=== PATIENT | male | born 1965 | race Caucasian/White ===

== ENCOUNTER 2023-10-05 19:43 | Emergency (ER) | payer BC, SELFPAY ==
[2023-10-05 19:58] VITALS: BP 143/98; PULSE 86; RESP 18; O2SAT 97; BMI 29.8
[2023-10-05] MEDS: LIDOCAINE 2%-EPI 1:200,000 20 ML 5 ML INFILTRATI (20:41)
[2023-10-05] MEDS: TETANUS/DIPHTH/PERTUSSIS 0.5 ML SYRINGE IM (20:45)
--- NOTE | 2023-10-05 20:54 | ED.GENADULT ---
HPI - General Adult General Date Seen: 10/05/23 Chief complaint: Laceration/Wound Stated complaint: L arm lac-metal wheel. bleeding. Time Seen by Provider: 10/05/23 19:47 Source: patient Mode of arrival: ambulatory Limitations: no limitations History of Present Illness HPI narrative: Patient is a 58-year-old male who was using some sort of grinding tool at home, it bounced off of what he was working on and cut his left forearm. He is right handed. He denies any loss of function, numbness, tingling. Has no idea when his last tetanus would of been. [facility] Social History Smoking Status: Never smoker How often do you have a drink containing alcohol: never AUDIT-C Alcohol total score: 0 Non-prescribed substance use: denies use Exam Narrative: Exam Narrative: Vital signs reviewed In general, alert, well-appearing male. Extremities: Examination of the left forearm shows a 3 cm laceration to the forearm into the fatty tissue. He has full flexion extension at the wrist and hand, sensation is intact to light touch. Bleeding is controlled. Skin: Warm dry well perfused otherwise intact. Const: Vital Signs, click to edit/add: Vital Signs - 24 hr 10/05/23 19:58 Pulse Rate [Right Pulse Oximeter] 86 Respiratory Rate 18 Blood Pressure [Ri ght Upper Arm] 143/98 H Pulse Oximetry 97 Oxygen Delivery Me thod Room Air Documenting provider has reviewed patient's vital signs: yes Course Course ED Course: Procedure note: The wound was anesthetized using xylocaine 1% with epinephrine. It was explored without evidence of foreign body or damage to deeper structures. The operating theatre technician irrigated this with saline and Hibiclens. He tolerated this well. I closed the skin using 5 0 nylon, a total of 4 horizontal mattress sutures were placed. Dressing applied by the nurse. Routine wound care, return for signs of infection. Suture removal in about 10 days. Tetanus was updated. Vital Signs Vital signs: Initial Vital Signs Pulse Rate 86 10/05/23 19:58 Respiratory Rate 18 10/05/23 19:58 Blood Pressure 143/98 H 10/05/23 19:58 Blood Pressure Mean 113 H 10/05/23 19:58 Blood Pressure Position Sitting 10/05/23 19:58 Pulse Oximetry 97 10/05/23 19:58 Oxygen Delivery Method Room Air 10/05/23 19:58 Vital Signs Pulse Rate 86 10/05/23 19:58 Respiratory Rate 18 10/05/23 19:58 Blood Pressure 143/98 H 10/05/23 19:58 Pulse Oximetry 97 10/05/23 19:58 Oxygen Delivery Method Room Air 10/05/23 19:58 Pulse Rate 86 10/05/23 19:58 Respiratory Rate 18 10/05/23 19:58 Blood Pressure 143/98 H 10/05/23 19:58 Pulse Oximetry 97 10/05/23 19:58 Oxygen Delivery Method Room Air 10/05/23 19:58 Medications Administered Medications: Discontinued Medications Generic Name Dose Route Start Last Admin Trade Name Freq PRN Reason Stop Dose Admin Diphtheria/Tetanus/Acell Pertussis 0.5 ml 10/05/23 20:06 10/05/23 20:45 Tetanus/Diphth/Pertussis 0.5 Ml Syringe IM 10/05/23 20:07 0.5 ml .ONCE ONE Administration Lidocaine/Epinephrine 5 ml 10/05/23 20:06 10/05/23 20:41 Lidocaine 2%-Epi 1:200,000 20 Ml INFILTRATI 10/05/23 20:07 5 ml ONCE ONE Administration Discharge Plan Discharge Clinical Impression: Laceration of left forearm Patient Disposition: Home, Self-Care Condition: Improved Instructions: Laceration (ED) Additional Instructions: Routine wound care, return for signs of infection. Suture removal in about 10 days. Stand Alone Forms: [facility] Info Instructions
== END 2023-10-05 20:50 | disposition home or self-care (01) ==
LOC: ED 20:37
PROVIDERS: Emergency Provider Emergency Medicine
DX: S51.812A Laceration without foreign body of left forearm, initial encounter (principal); W31.89XA Contact with other specified machinery, initial encounter
CPT/HCPCS: 12001; 90471; 90715; 99283